=== PATIENT | female | born 1980 | race Caucasian/White ===

== ENCOUNTER 2018-10-24 08:54 | Emergency (ER) | payer MEDICAID ==
[~2018-10-24] VITALS: Wt 78.9 kg
[~2018-10-24 08:54] MED LIST: PRENAT PO
[2018-10-24 09:01] VITALS: BP 118/68; PULSE 68; RESP 18
[2018-10-24] MEDS ORDERED: PSEU-79 PO (09:20)
[2018-10-24] MEDS ORDERED: AMOX1TAB10 PO (09:20)
[2018-10-24] MEDS ORDERED: NAPR-985 PO (09:20)
[2018-10-24] MEDS ORDERED: FLUT9.9S NASAL (09:20)
--- NOTE | 2018-10-24 09:48 | ERD ---
ER Documentation Chief Complaint Chief Complaint flu like symptoms x 3 weeks with shayna ear aches HPI 38-year-old female presenting with bilateral ear pain with nasal congestion and runny nose. Patient has a cough which is productive. Has not taken medications today. Tactile fevers. Denies medical problems. NKDA. Surgical history hand surgery. Social history denies ROS All systems reviewed and are negative except as per history of present illness. Medications Home Meds Active Scripts Naproxen* (Naprosyn*) 500 Mg Tablet, 500 MG PO BID PRN for PAIN AND/OR INFLAMMATION, #30 TAB Prov:JOSE FRANCISCO CORREIA PA-C 10/24/18 Fluticasone Propionate (Flonase Allergy Relief) 9.9 Ml [place].susp, 1 SPRAY NASAL DAILY, #1 BOTTLE TO EACH NOSTRIL Prov:JOSE FRANCISCO CORREIA PA-C 10/24/18 Pseudoephedrine Hcl* (Suphedrin*) 30 Mg Tablet, 30 MG PO Q6 PRN for CONGESTION, #30 TAB Prov:JOSE FRANCISCO CORREIA PA-C 10/24/18 Amoxicillin/Potassium Clav (Amox-Clav 875-125 mg Tablet) 875-125 mg Tab, 1 TAB PO BID for 7 Days, #14 TAB Prov:JOSE FRANCISCO CORREIA PA-C 10/24/18 Reported Medications Multivit/Min/Fol Ac/Iron/Pren* ( S*) 1 Tab Tab, 1 TAB PO DAILY, TAB 10/22/15 Allergies Allergies: Coded Allergies: No Known Allergy (Unverified , 10/22/15) PMhx/Soc Medical and Surgical Hx: pt denies Medical Hx, pt denies Surgical Hx Hx Alcohol Use: No Hx Substance Use: No Hx Tobacco Use: No Smoking Status: Never smoker FmHx Family History: No diabetes, No coronary disease, No other Physical Exam Vitals Vital Signs Date Temp Pulse Resp B/P (MAP) Pulse Ox O2 O2 Flow FiO2 Time Delivery Rate 10/24/18 98.2 68 18 118/68 99 09:01 (85) Physical Exam GENERAL: The patient is well-appearing, well-nourished, in no acute distress HEENT: Atraumatic. Conjunctivae are pink. Pupils equal, round, and reactive to light. There is no scleral icterus. Tympanic membranes clear bilaterally. Oropharynx clear. NECK: C-spine is soft and supple. There is no meningismus. There is no ce rvical lymphadenopathy. CHEST: Clear to auscultation bilaterally. There are no rales, wheezes or rhonchi. HEART: Regular rate and rhythm. No murmurs, clicks, rubs or gallops. Procedures/MDM MDM: 38-year-old female presenting with nasal congestion and sinus pressure. I will treat with antibiotics given the symptoms have been persistent for the last 3 weeks. Patient is also discharged with supportive medications. I have low suspicion for meningitis or sepsis. Patient is discharged with strict ER precautions and told to follow-up with primary care within 1-2 days for close evaluation. Patient is told if symptoms change or worsen to return immediately to the ER. All questions answered at discharge Departure Diagnosis: Primary Impression: Sinusitis Condition: Stable Patient Instructions: Sinusitis, Abx Tx Referrals: [facility] YOU HAVE RECEIVED A MEDICAL SCREENING EXAM AND THE RESULTS INDICATE THAT YOU DO NOT HAVE A CONDITION THAT REQUIRES URGENT TREATMENT IN THE EMERGENCY DEPARTMENT. FURTHER EVALUATION AND TREATMENT OF YOUR CONDITION CAN WAIT UNTIL YOU ARE SEEN IN YOUR DOCTORS OFFICE WITHIN THE NEXT 1-2 DAYS. IT IS YOUR RESPONSIBILITY TO MAKE AN APPOINTMENT FOR FOLOW-UP CARE. IF YOU HAVE A PRIMARY DOCTOR --you should call your primary doctor and schedule an appointment IF YOU DO NOT HAVE A PRIMARY DOCTOR YOU CAN CALL OUR PHYSICIAN REFERRAL HOTLINE AT IF YOU CAN NOT AFFORD TO SEE A PHYSICIAN YOU CAN CHOSE FROM THE FOLLOWING [facility] [address] [facility]. [facility] [address] [facility]. [facility] [address] [facility]. [facility] [address] [facility]. [facility] [address] [facility]. [facility]. [address] Additional Instructions: FOLLOW UP WITH YOUR PRIMARY CARE PHYSICIAN TOMORROW.Return to this facility if you are not improving as expected. JOSE FRANCISCO CORREIAC Oct 24, 2018 09:48
== END 2018-10-24 09:40 | disposition home or self-care (01) ==
LOC: FTE 08:54
DX: J32.9 Chronic sinusitis, unspecified (principal)
CPT/HCPCS: 99283

== ENCOUNTER 2019-01-13 18:17 | Emergency (ER) | payer MEDICAID ==
[~2019-01-13] VITALS: Ht 165.1 cm; Wt 78.2 kg
[~2019-01-13 18:17] MED LIST changes: +AMOX1TAB10 PO; +FLUT9.9S NASAL; +NAPR-985 PO; +PSEU-79 PO
[2019-01-13 18:28] VITALS: Ht 165.1 cm; Wt 78.2 kg
[2019-01-13] MEDS ORDERED: KETOROLAC 30 MG INJ IV STA (19:00)
[2019-01-13] MEDS ORDERED: SOD CHLORIDE 0.9% 1,000 ML IV STA (19:00)
[2019-01-13] MEDS ORDERED: ONDANSETRON 4 MG INJ IV STA (19:00)
[2019-01-13] MEDS ORDERED: BUTA1CAP38 PO (19:57)
[2019-01-13] MEDS ORDERED: CIPR500T4 PO (19:57)
[2019-01-13 20:41] VITALS: BP 104/60; PULSE 69; RESP 18
--- NOTE | 2019-01-13 22:16 | ERD ---
ER Documentation Chief Complaint Chief Complaint SYKES and fever x 4 days Tylenol @ 1400 HPI 38-year-old female presenting with headache and tactile fevers for the last 4 days. Patient states she took Tylenol 7 hours prior to my evaluation. She has no dysuria. Denies any neck stiffness. Denies any runny nose or cough. Denies chest pain or shortness of breath. Denies changes in bowel movement. Denies medical problems. NKDA. Surgical history . Social history denies ROS All systems reviewed and are negative except as per history of present illness. Medications Home Meds Active Scripts Mbbroobums-Aiimtydmbimxi-Hutdpzvq* (Fioricet*) 50-300-40 Mg Capsule, 1 CAP PO Q4H PRN for HEADACHE, #30 CAP Prov:JOSE FRANCISCO CORREIA PA-C 01/13/19 Ciprofloxacin Hcl* (Ciprofloxacin Hcl*) 500 Mg Tablet, 500 MG PO BID for 10 Days, TAB Prov:JOSE FRANCISCO CORREIA PA-C 01/13/19 Naproxen* (Naprosyn*) 500 Mg Tablet, 500 MG PO BID PRN for PAIN AND/OR INFLAMMATION, #30 TAB Prov:JOSE FRANCISCO CORREIA PA-C 10/24/18 Fluticasone Propionate (Flonase Allergy Relief) 9.9 Ml [place].susp, 1 SPRAY NASAL DAILY, #1 BOTTLE TO EACH NOSTRIL Prov:JOSE FRANCISCO CORREIA PA-C 10/24/18 Pseudoephedrine Hcl* (Suphedrin*) 30 Mg Tablet, 30 MG PO Q6 PRN for CONGESTION, #30 TAB Prov:JOSE FRANCISCO CORREIA PA-C 10/24/18 Amoxicillin/Potassium Clav (Amox-Clav 875-125 mg Tablet) 875-125 mg Tab, 1 TAB PO BID for 7 Days, #14 TAB Prov:JOSE FRANCISCO CORREIA PA-C 10/24/18 Reported Medications Multivit/Min/Fol Ac/Iron/Pren* ( S*) 1 Tab Tab, 1 TAB PO DAILY, TAB 10/22/15 Allergies Allergies: Coded Allergies: No Known Allergy (Unverified , 10/22/15) PMhx/Soc Medical and Surgical Hx: pt denies Medical Hx History of Surgery: Yes () Anesthesia Reaction: No Hx Alcohol Use: No Hx Substance Use: No Hx Tobacco Use: No Smoking Status: Never smoker FmHx Family History: No diabetes, No coronary disease, No other Physical Exam Vitals Vital Signs Date Temp Pulse Resp B/P (MAP) Pulse Ox O2 O2 Flow FiO2 Time Delivery Rate 01/13/19 69 18 104/60 96 20:41 (75) 01/13/19 98.3 79 15 107/55 97 Room Air 20:02 (72) 01/13/19 99.2 95 16 114/59 97 18:28 (77) Physical Exam GENERAL: The patient is well-appearing, well-nourished, in no acute distress HEENT: Atraumatic. Conjunctivae are pink. Pupils equal, round, and reactive to light. There is no scleral icterus. Tympanic membranes clear bilaterally. Oropharynx clear. CHEST: Clear to auscultation bilaterally. There are no rales, wheezes or rhonchi. HEART: Regular rate and rhythm. No murmurs, clicks, rubs or gallops. ABDOMEN:Soft, nontender and nondistended. Good bowel sounds. No rebound or guarding. No gross peritonitis. No gross organomegaly or masses. BACK: No midline or flank tenderness. EXTREMITIES: Equal pulses bilaterally. There is no peripheral clubbing, cyanosis or edema. No focal swelling or erythema. Full range of motion. Grossly neurovascularly intact. NEUROLOGIC: Alert and oriented. Cranial nerves II through XII intact. Motor strength in all 4 extremities with 5 out of 5 strength. Sensation grossly intact. Normal speech and gait. Babinski negative. SKIN: There is no apparent rash or petechiae. The skin is warm and dry. Result Diagram: 01/13/19190901/13/191909 Results 24 hrs Laboratory Tests Test 01/13/19 19:10 01/13/19 19:20 White Blood Count 9.3 10^3/ul Red Blood Count 4.49 10^6/ul Hemoglobin 12.8 g/dl Hematocrit 38.9 % Mean Corpuscular Volume 86.6 fl Mean Corpuscular Hemoglobin 28.5 pg Mean Corpuscular Hemoglobin Concent 32.9 g/dl Red Cell Distribution Width 12.1 % Platelet Count 377 10^3/UL Mean Platelet Volume 9.1 fl Immature Granulocytes % 0.200 % Neutrophils % 62.7 % Lymphocytes % 24.8 % Monocytes % 10.6 % Eosinophils % 1.4 % Basophils % 0.3 % Nucleated Red Blood Cells % 0.0 /100WBC Immature Granulocytes # 0.020 10^3/ul Neutrophils # 5.8 10^3/ul Lymphocytes # 2.3 10^3/ul Monocytes # 1.0 10^3/ul Eosinophils # 0.1 10^3/ul Basophils # 0.0 10^3/ul Nucleated Red Blood Cells # 0.0 10^3/ul Urine Color YELLOW Urine Clarity SLIGHTLY CLOUDY Urine pH 5.0 Urine Specific [place] 1.020 Urine Ketones NEGATIVE mg/dL Urine Nitrite NEGATIVE mg/dL Urine Bilirubin NEGATIVE mg/dL Urine Urobilinogen NEGATIVE mg/dL Urine Leukocyte Esterase TRACE Cecilia/ul Urine Microscopic RBC 28 /HPF Urine Microscopic WBC 17 /HPF Urine Squamous Epithelial Cells FEW /HPF Urine Mucus FEW /HPF Urine Hemoglobin 3+ mg/dL Urine Glucose NEGATIVE mg/dL Urine Total Protein NEGATIVE mg/dl Sodium Level 141 mmol/L Potassium Level 3.3 mmol/L Chloride Level 103 mmol/L Carbon Dioxide Level 28 mmol/L Anion Gap 10 Blood Urea Nitrogen 14 mg/dl Creatinine 0.70 mg/dl Est Glomerular Filtrat Rate mL/min > 60 mL/min Glucose Level 140 mg/dl Calcium Level 9.0 mg/dl Total Bilirubin 0.3 mg/dl Direct Bilirubin 0.00 mg/dl Indirect Bilirubin 0.3 mg/dl Aspartate Amino Transf (AST/SGOT) 68 IU/L Alanine Aminotransferase (ALT/SGPT) 107 IU/L Alkaline Phosphatase 101 IU/L Total Protein 8.1 g/dl Albumin 4.2 g/dl Globulin 3.90 g/dl Albumin/Globulin Ratio 1.07 POC Beta HCG, Qualitative NEGATIVE Current Medications Medications Dose Sig/Wild Start Time Status Last (Trade) Ordered Route PRN Stop Time Admin Dose Reason Admin Sodium 1,000 ml @ Q1H STAT 01/13/19 DC 01/13/19 Chloride 1,000 mls/hr IV 19:00 19:21 01/13/19 19:59 Ondansetron 4 mg ONCE STAT 01/13/19 DC 01/13/19 HCl (Zofran IV 19:00 19:27 Inj) 01/13/19 19:02 Ketorolac 30 mg ONCE STAT 01/13/19 DC 01/13/19 Tromethamine IV 19:00 19:28 (Toradol) 01/13/19 19:02 Procedures/MDM Course: 1 L normal saline given in ED. Toradol and Zofran given in ED. Urinalysis concerning for infection. MDM: 38-year-old female presenting with headache. Patient exam was within normal limits and I have low suspicion for intracranial hemorrhage or neuro deficit. I do not feel a CT scan was indicated. I do not feel imaging is indicated. Patient will be treated for urinary tract infection her symptoms improved with supportive medications in the emergency room. Blood work was within normal limits. Patient is discharged with strict ER precautions and re commended to return if symptoms change or worsen. Patient is also recommended to follow-up with her primary care doctor. All questions answered at discharge Departure Diagnosis: Primary Impression: UTI (urinary tract infection) Additional Impression: Headache Condition: Stable Patient Instructions: Understanding Urinary Tract Infections (UTIs), Self-Care for Headaches Referrals: [facility] YOU HAVE RECEIVED A MEDICAL SCREENING EXAM AND THE RESULTS INDICATE THAT YOU DO NOT HAVE A CONDITION THAT REQUIRES URGENT TREATMENT IN THE EMERGENCY DEPARTMENT. FURTHER EVALUATION AND TREATMENT OF YOUR CONDITION CAN WAIT UNTIL YOU ARE SEEN IN YOUR DOCTORS OFFICE WITHIN THE NEXT 1-2 DAYS. IT IS YOUR RESPONSIBILITY TO MAKE AN APPOINTMENT FOR FOLOW-UP CARE. IF YOU HAVE A PRIMARY DOCTOR --you should call your primary doctor and schedule an appointment IF YOU DO NOT HAVE A PRIMARY DOCTOR YOU CAN CALL OUR PHYSICIAN REFERRAL HOTLINE AT IF YOU CAN NOT AFFORD TO SEE A PHYSICIAN YOU CAN CHOSE FROM THE FOLLOWING [facility] [address] [facility]. [facility] [address] [facility]. [facility] [address] [facility] [address] [facility]. [facility] [address] [facility]. [facility]. [address] Additional Instructions: FOLLOW UP WITH YOUR PRIMARY CARE PHYSICIAN TOMORROW.Return to this facility if you are not improving as expected. JOSE FRANCISCO CORREIA PA-C Jan 13, 2019 22:16
== END 2019-01-13 20:47 | disposition home or self-care (01) ==
LOC: FTE 18:17
DX: N39.0 Urinary tract infection, site not specified (principal); R51 Headache
CPT/HCPCS: 36415; 80053; 81001; 81025; 85025; 87086; 96374; 96375; J1885; J2405; J7030; Z7502